=== PATIENT | male | born 1985 | race Caucasian/White ===

== ENCOUNTER 2017-05-15 20:05 | Emergency (ER) | payer MEDICAID, OTHER ==
[~2017-05-15 20:05] MED LIST: BACT800T5 PO; DOXY100T PO
[2017-05-15 20:07] VITALS: BP 124/73; PULSE 84; RESP 20; TEMP 99.1; O2SAT 100
[2017-05-15] MEDS ORDERED: IBUPROFEN 600 MG TAB PO ONE (23:00)
--- NOTE | 2017-05-15 23:06 | PD ---
HPI Chief Complaint: Respiratory Symptoms Time Seen by Provider: 22:57 Travel History International Travel<30 days: No Contact w/Intl Traveler<30days: No Traveled to known affect area: No History of Present Illness HPI Patient is a 32-year-old male who presents to emergency with complaints of right -sided rib pain. Patient reports that he was arrested yesterday, he believes that the way he slept in senior care caused pain to his right ribs. Reports that his ribs are tender to touch. Denies any traumas to his ribs. Denies any chest pain. Reports that his pain is so bad, he cannot smoke a cigarette. PFSH Past Medical History Blood Disorders: No Bipolar Disorder: Yes Anxiety: Yes Depression: Yes Diabetes: No Diminished Hearing: No Immune Disorder: Yes (MULTIPLE SCLEROSIS) Medical other: Yes (MS PER PT ) Psychiatric: Yes (BIPOLAR ) Immunizations Current: Yes Past Surgical History Surgical History: No Previous Surgery Neurologic Surgery: Yes (MS) Social History Alcohol Use: No Tobacco Use: Yes (1PPD ) Substance Use: No Allergies-Medications (Allergen,Severity, Reaction): Coded Allergies: Penicillin (Verified Allergy, Severe, 02/20/17) Uncoded Allergies: "MYCINS" (Allergy, Unknown, 08/21/08) Reported Meds & Prescriptions Reported Meds & Active Scripts Active Ibuprofen 600 Mg Tab 600 Mg PO Q6H PRN Review of Systems General / Constitutional: No: Fever Eyes: No: Visual changes HENT: No: Headaches Cardiovascular: No: Chest Pain or Discomfort Respiratory: No: Shortness of Breath Gastrointestinal: No: Abdominal Pain Genitourinary: No: Dysuria Musculoskeletal: Positive: Pain (right-sided rib pain) Skin: No Rash Neurologic: No: Weakness Psychiatric: No: Depression Endocrine: No: Polydipsia Hematologic/Lymphatic: No: Easy Bruising Physical Exam Narrative GENERAL: Mild distress SKIN: Focused skin assessment warm/dry. HEAD: Atraumatic. Normocephalic. EYES: Pupils equal and round. No scleral icterus. No injection or drainage. ENT: No nasal bleeding or discharge. Mucous membranes pink and moist. NECK: Trachea midline. No JVD. CARDIOVASCULAR: Regular rate and rhythm. No murmur appreciated. RESPIRATORY: No accessory muscle use. Clear to auscultation. Breath sounds equal bilaterally. GASTROINTESTINAL: Abdomen soft, non-tender, nondistended. Hepatic and splenic margins not palpable. MUSCULOSKELETAL: No obvious deformities. No clubbing. No cyanosis. No edema. Patient with right-sided rib pain, no bruising or edema or redness on examination. NEUROLOGICAL: Awake and alert. Motor grossly within normal limits. Normal speech. PSYCHIATRIC: Appropriate mood and affect; insight and judgment normal. Data Data Last Documented VS Vital Signs Date Time Temp Pulse Resp B/P Pulse Ox O2 Delivery O2 Flow Rate FiO2 05/15/17 20:07 99.1 84 20 124/73 100 Room Air Orders Ribs, Uni (W/Exp Cxr-Min 3vw) (05/15/17 ) Ibuprofen (Motrin) (05/15/17 23:00) Drug Screen, Random Urine (05/15/17 23:02) [facility] Medical Decision Making Medical Screen Exam Complete: Yes Emergency Medical Condition: Yes Interpretation(s) Vital Signs Date Time Temp Pulse Resp B/P Pulse Ox O2 Delivery O2 Flow Rate FiO2 05/15/17 20:07 99.1 84 20 124/73 100 Room Air Differential Diagnosis Differential includes of rib fracture, rib strain, pneumonia Narrative Course 32-year-old male who presents to emergency room complaints of right-sided rib pain after he was arrested last night. He leaves that symptoms began after he woke up from sleeping in the cell as the beds were "hard." VSS Vital Signs Date Time Temp Pulse Resp B/P Pulse Ox O2 Delivery O2 Flow Rate FiO2 05/15/17 20:07 99.1 84 20 124/73 100 Room Air Plan to obtain xray of right ribs. Will give ibuprofen for pain. Patient re-evaluated, sleeping comfortably on stretcher and in no acute distress. I reviewed x ray results with patient. X-ray of right-sided ribs with no acute fractures, no signs of pneumothorax. Patient with most likely rib strain from sleeping on cot at care home yesterday. Patient will follow up with his primary care doctor and will return to emergency room as needed. Diagnosis Primary Impression: Rib pain on right side Patient Instructions: General Instructions Additional Instructions: Please follow up with your primary care doctor Return to the emergency room as needed Med/Other Pt SpecificInfo: Prescription(s) given Scripts Ibuprofen 600 Mg [id number] Mg PO Q6H PRN (Pain/Inflammation) #40 TAB Ref 0 Prov:Carla Vera DO 05/16/17 Disposition: 01 DISCHARGE HOME Condition: Stable Carla Vera DO May 15, 2017 23:06
[2017-05-15 23:49] LABS: AMPHETAMINE, URINE POS (NEG); BARBITURATES, URINE NEG (NEG); COCAINE, URINE NEG (NEG)
--- NOTE | 2017-05-15 23:52 | RADRPT ---
EXAM DATE/TIME: 05/15/2017 23:11 [facility] COMPARISON: No previous studies available for comparison. INDICATIONS : Right side rib pain after fall. MEDICAL HISTORY : None. SURGICAL HISTORY : None. ENCOUNTER: Initial ACUITY: 1 day PAIN SCORE: 10/10 LOCATION: Right posterior upper ribs. FINDINGS: Multiple views of the right ribs were performed. There is no evidence of displaced fracture. No chirag tructive lesions or areas of periosteal thickening are seen. Expiratory view of the chest is negativ e for pneumothorax. The mediastinal structures are midline. CONCLUSION: Normal examination for a patient of this age. Dhaval Page MD on May 15, 2017 at 23:49 Board Certified Radiologist. This report was verified electronically.
[2017-05-16] MEDS ORDERED: IBUP-232 PO (00:12)
== END 2017-05-16 00:26 | disposition home or self-care (01) ==
LOC: NEPC 20:05
DX: R07.81 Pleurodynia (principal); F31.9 Bipolar disorder, unspecified; F41.9 Anxiety disorder, unspecified; F32.9 Major depressive disorder, single episode, unspecified; G35 Multiple sclerosis; F17.200 Nicotine dependence, unspecified, uncomplicated; Z88.0 Allergy status to penicillin; Z79.1 Long term (current) use of non-steroidal anti-inflammatories (NSAID)
CPT/HCPCS: 71101; 80307; 99283